=== PATIENT | female | born 1950 | race Caucasian/White ===

== ENCOUNTER 2020-01-05 23:07 | Emergency (ER) | payer MEDICARE, OTHER, SELFPAY ==
--- NOTE | ~2020-01-05 | CT_ITS ---
EXAMINATION: CT brain wo con DATE: 01/06/2020 00:08 INDICATION: Fall with head injury, laceration and loss of consciousness. TECHNIQUE: Computed tomography (CT) of the head was performed without intravenous contrast. Sagittal and coronal reconstructions were performed. The mA was adjusted according to patient size. Iterative reconstruction technique was employed. The dose-length product was 605.33 mGy-cm. COMPARISON: None FINDINGS: Soft tissue swelling and laceration with underlying hematoma and subcutaneous gas in the left supraor bital region. No radiopaque foreign bodies. Orbits are normal with changes of bilateral intraocular l ens replacement. No fracture. No acute intracranial hemorrhage, acute infarction or abnormal extra ax ial fluid collection. Ventricles are normal and symmetric. No mass/mass effect. The orbits, paranasal sinuses and mastoid air cells are normal. IMPRESSION: 1. Left supraorbital soft tissue swelling and skin laceration. No fracture or acute intracranial proc ess. Reviewed, dictated and finalized at location A. IMPRESSION: 1. Left supraorbital soft tissue swelling and skin laceration. No fracture or a cute intracranial process.
--- NOTE | ~2020-01-05 | CT_ITS ---
EXAMINATION: CT cervical spine wo con DATE: 01/06/2020 00:09 INDICATION: Fall with head injury and loss of consciousness TECHNIQUE: Computed tomography (CT) of the cervical spine was performed without intravenous contrast. Automated exposure control and iterative reconstruction technique were employed. The dose-length pro duct was 502.25 mGy-cm. COMPARISON: None FINDINGS: Straightening of the normal cervical lordosis. No spondylolisthesis or facet subluxation. Vertebral b gurdeep heights are normal. No fracture. Moderate disc height loss with moderate to severe uncovertebral osteoarthritis at C5-C6 and C6-C7. Mild disc height loss at the remaining levels between C2-C3 and an d T2-T3. Associated disc bulges result in mild central canal stenosis at a few levels most prominent at C6-C7. Bilateral severe multilevel cervical facet osteoarthritis which also results in mild neural foraminal stenosis at multiple levels on both the left and right. Visualized apices of lungs are jcak ar. Multiple small bilateral thyroid nodules, a few with coarse calcifications. IMPRESSION: 1. Moderate cervical spondylosis with straightening of the normal cervical lordosis which could be ei ther positional or secondary to muscle spasm. No fracture or other acute osseous abnormality. Reviewed, dictated and finalized at location A. IMPRESSION: 1. Moderate cervical spondylosis with straightening of the normal cervical lord osis which could be either positional or secondary to muscle spasm. No fracture or other acute osseous abnormality.
[2020-01-05 23:11] VITALS: BP 137/69; PULSE 62; RESP 16; TEMP 36.8; O2SAT 95
--- NOTE | 2020-01-05 23:14 | ED.FALL ---
HPI - Fall General Chief Complaint: Fall Stated Complaint: fall, lac, loc Time Seen by Provider: 01/05/20 23:11 Source: RN notes reviewed History of Present Illness HPI Narrative: Patient presents emergency department from home for fall. Patient states that this evening she was holding her phone her phone fell in front of her she went to bend over and picker / packer the phone when her feet out from under her and she fell striking the front of her head on the floor. Patient denies any other trauma or injury states that she was drinking white wine this evening patient is unsure of any loss of consciousness currently is awake and alert x3 and answering all questions appropriately denies any blood thinner use is unsure of her last tetanus administration Related Data Home Medications Medication Instructions Recorded Confirmed travoprost 0.004 % eye drops 1 drop EACH EYE QPM 06/19/19 06/19/19 Allergies Allergy/AdvReac Type Severity Reaction Status Date / Time celecoxib Allergy Unknown Hives Verified 01/05/20 23:14 Review of Systems Review of Systems: Narrative: Gen.: Denies fevers or chills Eyes: Denies eye pain or visual change ENT: See HPI Respiratory: Denies shortness of breath or cough CV: Denies chest pain or palpitations GI: Denies abdominal pain nausea, emesis or diarrhea Musculoskeletal: Denies back pain or muscle pain Neuro: Denies numbness, tingling, weakness or focal weakness Skin: Reports facial laceration Except as documented, all other systems reviewed and negative [facility] Past Medical History Medical History Hyperlipidemia, unspecified Hypothyroidism Vitamin D deficiency Social History Social History Smoking status: Never smoker Alcohol intake: current Gender identity (if verbalized by the patient): Female Exam Narrative: Exam Narrative: APPEARANCE: No acute distress, nontoxic, resting in bed EYES: EOMI, Tatum, left subconjunctival hemorrhage over medial aspect no erythema or superior medial or lateral aspect HEENT: Normocephalic, swelling and ecchymosis over left eyebrow and orbit overlying 2.5 cm laceration that is linear deep with mild venous bleeding no foreign body nares patent with no epistaxis or mucosa moist Neck: Supple, no midline tenderness palpation RESPIRATORY: No respiratory distress Clear to auscultation bilaterally with no rhonchi wheezing or rales. CARDIOVASCULAR: Regular rate and rhythm without murmurs rubs or gallops. ABDOMINAL: Soft, nontender, nondistended, no rebound or guarding MUSCULOSKELETAl: Moves all extremities. No clubbing, cyanosis or edema. NEURO: Awake and alert x 3. Following commands, speech normal, no focal deficits muscle strength 5 out of 5 bilateral upper and lower extremities SKIN:: Warm, dry. No rashes lesions or abrasions PSYCHIATRIC: Normal affect/mood, Course Course Emergency Course: Patient able to get up and ambulate in ED with no difficulty Discussed with patient results of workup and diagnosis. Discussed need for follow-up with primary care, proper use of medication, and reasons to return to the emergency department. Patient understands and agrees to current treatment plan Vital Signs Vital signs: Vital Signs Temperature 98.2 F 01/05/20 23:11 Pulse Rate 62 01/05/20 23:11 Respiratory Rate 16 01/05/20 23:11 Blood Pressure 137/69 01/05/20 23:11 Pulse Oximetry 95 01/05/20 23:11 Temperature 98.2 F 01/05/20 23:11 Pulse Rate 62 01/06/20 00:29 Respiratory Rate 20 01/06/20 00:29 Blood Pressure 136/66 01/06/20 00:29 Pulse Oximetry 92 01/06/20 00:29 Procedures Laceration Laceration 1: ====== Skin Level ====== ====== Subcutaneous Layer ====== ====== Muscle Layer ====== ====== Tendon Layer ====== Dressing: Verbal consent was obtained prior to the procedure. The wound was cleaned with
[2020-01-05] MEDS: TETANUS,DIPHTHERIA,AC PERTUSSIS ADULT (0.5 ML) BOOSTRIX IM (23:38)
[2020-01-06 00:29] VITALS: BP 136/66; PULSE 62; RESP 20; O2SAT 92
[2020-01-06 01:46] VITALS: BP 135/63; PULSE 63; RESP 20; O2SAT 92
== END 2020-01-06 01:57 | disposition home or self-care (01) ==
PROVIDERS: Emergency Provider Emergency Medicine; PCP Family Medicine
DX: S01.81XA Laceration without foreign body of other part of head, initial encounter (principal); E78.5 Hyperlipidemia, unspecified; E03.9 Hypothyroidism, unspecified; E55.9 Vitamin D deficiency, unspecified; Z23 Encounter for immunization; W01.0XXA Fall on same level from slipping, tripping and stumbling without subsequent striking against object, initial encounter
CPT/HCPCS: 12011; 70450; 72125; 90471; 90715; 99284